=== PATIENT | female | born 1940 | race Caucasian/White ===

== ENCOUNTER 2021-01-27 11:54 | Inpatient (IN) | payer BC ==
[~2021-01-27] VITALS: Ht 162.6 cm; Wt 68.1 kg
[2021-01-27] MEDS ORDERED: Z GUARD REMEDY PASTE 57 GM TUBE TOP PRN (21:30)
[2021-01-27 22:41] VITALS: BP 120/57
[2021-01-27] MEDS ORDERED: METO-356 PO (22:43)
[2021-01-27] MEDS ORDERED: CLOP75TA33 PO (22:43)
[2021-01-27] MEDS ORDERED: ASPI81TA31 PO (22:43)
[2021-01-27] MEDS ORDERED: SITA100T PO (22:43)
[2021-01-27] MEDS ORDERED: BENA1TAB18 PO (22:43)
[2021-01-27] MEDS ORDERED: ATOR20TA PO (22:43)
[2021-01-27] MEDS ORDERED: MULT-594 PO (22:43)
[2021-01-27] MEDS ORDERED: CYAN-51 PO (22:43)
[2021-01-27] MEDS ORDERED: ASCO-376 PO (22:43)
[2021-01-27] MEDS ORDERED: METF-494 PO (22:43)
[2021-01-27] MEDS ORDERED: LEVO88TA5 PO (22:43)
--- NOTE | 2021-01-28 03:16 | NUR ---
Pt direct admit from [facility]. Arrived in stable condition. Denies chest pain. On 2L sating at 97%. Pt alert and oriented, able to make needs known. Medications added and Dr. Tyson notified to reconcile meds. Dr. Tyson stated that it will be done in the morning. Pt not in any distress at this time. Denies pain or discomfort. No other issues or concerns at this time.
[2021-01-28 04:00] VITALS: BP 176/51
[2021-01-28] MEDS: METOPROLOL SUCCINATE XL 25 MG TAB.SR.24H PO SCH (05:10)
--- NOTE | 2021-01-28 05:10 | NUR ---
Pt had BP of 176/57, meds still not reconciled. Contacted Ana Paula Cummings NP and added Metoprolol 25mg for pt.
--- NOTE | 2021-01-28 05:48 | NUR ---
Medications reconciled. 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 Pt denies SOB or chest pain. On 1L satting at 96%. Able to make needs known. No other issues or concerns at this time, will endorse to day shift.
[2021-01-28] MEDS ORDERED: LEVOTHYROXINE SODIUM 88 MCG TABLET PO SCH (07:30)
[2021-01-28] MEDS: LINAGLIPTIN 5 MG TABLET PO SCH (08:40)
[2021-01-28] MEDS: CYANOCOBALAMIN 1,000 MCG TABLET PO SCH (08:40)
[2021-01-28] MEDS: HYDROCHLOROTHIAZIDE 12.5 MG CAPSULE PO SCH (08:41)
[2021-01-28] MEDS: BENAZEPRIL HCL 20 MG TABLET PO SCH (08:41)
[2021-01-28] MEDS: MULTIVITAMINS,THERAPEUTIC TABLET PO SCH (08:41)
[2021-01-28] MEDS: ASCORBIC ACID 500 MG TABLET PO SCH (08:41)
[2021-01-28 08:46] VITALS: BP 181/65
[2021-01-28] MEDS ORDERED: METF-442 PO (08:47)
[2021-01-28] MEDS ORDERED: METFORMIN XR 500 MG TAB.SR.24H PO SCH ×2 (09:00)
[2021-01-28] MEDS ORDERED: ASPIRIN 81 MG TAB.CHEW PO SCH (09:00)
[2021-01-28] MEDS ORDERED: Medication Not On Formulary EA (Sitagliptin Phosphate (Januvia) 100 MG) PO SCH (09:00)
[2021-01-28] MEDS ORDERED: CLOPIDOGREL 75 MG TABLET PO SCH (09:00)
[2021-01-28] MEDS: METFORMIN HCL 500 MG TABLET PO SCH ×2 (09:05→17:29)
--- NOTE | 2021-01-28 09:51 | NUR ---
[facility] PH9 Post Stroke Depression Screening: harvest worker met with patient and conducted a PHQ-9 (Post Stroke Depression Screening) in which the patient score of a level of 1 for depression. Patient does not require a psychiatric consult at this time.
--- NOTE | 2021-01-28 09:52 | NUR ---
Social Work Stroke Resources: crisis worker met with patient and provided stroke referrals such as: Stroke Family Warmline at (1-048-8-STROKE) and additional information on caring for a stroke survivor ( ). crisis worker also educated patient on the signs of Stroke and to immediately call 911. crisis worker provided education on the signs of stroke and provided educational packet with information: Dietary food, what stroke is, risks, emotional support, finding support, medical management, and effects of stroke.
[2021-01-28 10:00] VITALS: BP 152/69
[2021-01-28] MEDS ORDERED: DEXTROSE 50% 50 ML DISP.SYRIN IV PRN (12:45)
[2021-01-28 15:25] VITALS: BP 141/49
[2021-01-28] MEDS: BLOOD SUGAR DIAGNOSTIC 1 EACH STRIP VI SCH ×2 (16:21→21:03)
--- NOTE | 2021-01-28 19:00 | NUR ---
Received on bed awake, responsive with call light within reach
--- NOTE | 2021-01-28 19:32 | NUR ---
Patient is alert, oriented x4, no sob, resp even nonlabored,skin warm and dry to touch, patient denied any pain, or headache, able to move her extremities without any limitations, rom active to both upper and lower extremities. no episode of any seizures noted during shift, paitent is on seizure precautions.no acute distress noted.
[2021-01-28 20:07] VITALS: BP 134/46
--- NOTE | 2021-01-28 21:00 | NUR ---
accucheck 128mg/dl. no coverage.tolerated medications
[2021-01-28] MEDS: ATORVASTATIN 20 MG TABLET PO SCH ×2 (21:02→21:09)
--- NOTE | 2021-01-29 02:46 | NUR ---
noted to be awake, was asleep when rounds done prior, with complaints of inability to sleep and sleeps at short intervals. will inform Dr Ruiz in am. warm milk given. cleaned and kept dry. bedpan served.
--- NOTE | 2021-01-29 06:10 | NUR ---
with complaints of no bm since admission, will inform physician about it.
[2021-01-29 06:15] VITALS: BP 180/74
[2021-01-29] MEDS: METOPROLOL SUCCINATE XL 25 MG TAB.SR.24H PO SCH (06:43)
[2021-01-29] MEDS: LEVOTHYROXINE SODIUM 88 MCG TABLET PO SCH (06:43)
[2021-01-29] MEDS: BENAZEPRIL HCL 20 MG TABLET PO SCH (06:44)
[2021-01-29] MEDS: BLOOD SUGAR DIAGNOSTIC 1 EACH STRIP VI SCH ×4 (06:46→20:56)
--- NOTE | 2021-01-29 06:47 | NUR ---
Dr Cummings informed about the elevated blood pressure and give the blood pressure medication early. lotensin and Torol xl dose given early /with orders for the constipation
--- NOTE | 2021-01-29 07:10 | NUR ---
received patient in bed sleeping, patient in stable condition, no signs of any SOB, pain or discomfort noted. call light within reach. will continue to monitor.
[2021-01-29 08:00] VITALS: BP 107/47
[2021-01-29] MEDS ORDERED: MAGNESIUM HYDROXIDE 30 ML LIQUID UDC PO PRN (08:00)
[2021-01-29] MEDS: MULTIVITAMINS,THERAPEUTIC TABLET PO SCH (08:33)
[2021-01-29] MEDS: LINAGLIPTIN 5 MG TABLET PO SCH (08:33)
[2021-01-29] MEDS: INSULIN REGULAR, HUMAN 300 UNIT/3 ML VIAL SQ PRN (08:33)
[2021-01-29] MEDS: HYDROCHLOROTHIAZIDE 12.5 MG CAPSULE PO SCH (08:34)
[2021-01-29] MEDS: METFORMIN HCL 500 MG TABLET PO SCH ×2 (08:34→17:07)
[2021-01-29] MEDS: ASCORBIC ACID 500 MG TABLET PO SCH (08:35)
[2021-01-29] MEDS: CYANOCOBALAMIN 1,000 MCG TABLET PO SCH (08:35)
[2021-01-29 16:46] VITALS: BP 129/51
--- NOTE | 2021-01-29 18:19 | NUR ---
patient in bed awake watching tv, patient stable. no complains of any SOB, pain or discomfort noted at this time. call light and belongings within reach. will report to oncoming nurse.
--- NOTE | 2021-01-29 19:00 | NUR ---
REceived on bed on high back rest with no untoward complaints, bedpan serve for voiding . with call light within reach
[2021-01-29 20:50] VITALS: BP 126/44
[2021-01-29] MEDS: ATORVASTATIN 20 MG TABLET PO SCH (21:03)
--- NOTE | 2021-01-29 23:44 | NUR ---
cleaned and voided freely. patient with complaints of pain to the neck. and requesting for tylenol . and anxious. Dr Tyson paged and with orders and carried out,
[2021-01-29] MEDS: ACETAMINOPHEN 325 MG TABLET PO PRN (23:53)
[2021-01-30] MEDS: TEMAZEPAM 7.5 MG CAPSULE PO PRN ×2 (00:13→22:11)
[2021-01-30 04:20] VITALS: BP 137/60
[2021-01-30] MEDS: LEVOTHYROXINE SODIUM 88 MCG TABLET PO SCH (06:28)
[2021-01-30] MEDS: BLOOD SUGAR DIAGNOSTIC 1 EACH STRIP VI SCH ×4 (06:33→21:00)
--- NOTE | 2021-01-30 07:30 | NUR ---
Awake and responsive, oriented x4. Denies pain. In no acute distress noted on 2lpm via nc. Breathing is non labored. Requests for bed goff. Needs attended. Kept comfortable. Call light in reach. Will continue to monitor.
[2021-01-30 08:00] VITALS: BP 139/59
[2021-01-30] MEDS: METFORMIN HCL 500 MG TABLET PO SCH ×2 (09:13→18:10)
[2021-01-30] MEDS: HYDROCHLOROTHIAZIDE 12.5 MG CAPSULE PO SCH (09:13)
[2021-01-30] MEDS: MULTIVITAMINS,THERAPEUTIC TABLET PO SCH (09:14)
[2021-01-30] MEDS: CYANOCOBALAMIN 1,000 MCG TABLET PO SCH (09:14)
[2021-01-30] MEDS: METOPROLOL SUCCINATE XL 25 MG TAB.SR.24H PO SCH (09:14)
[2021-01-30] MEDS: ASCORBIC ACID 500 MG TABLET PO SCH (09:14)
[2021-01-30] MEDS: LINAGLIPTIN 5 MG TABLET PO SCH (09:14)
[2021-01-30] MEDS: BENAZEPRIL HCL 20 MG TABLET PO SCH (09:14)
[2021-01-30] MEDS: INSULIN REGULAR, HUMAN 300 UNIT/3 ML VIAL SQ PRN (11:45)
[2021-01-30 12:00] VITALS: BP 120/41
--- NOTE | 2021-01-30 12:00 | NUR ---
Seen by LIV Kate in room.
[2021-01-30 16:04] VITALS: BP 124/47
--- NOTE | 2021-01-30 18:55 | NUR ---
Patient is resting but easy to arouse. In no acute distress. Comfortable on 2lpm drew nc no sob noted. Due meds given and tolerated. Safety and fall precautions maintained. Needs attended.
--- NOTE | 2021-01-30 19:00 | NUR ---
RECEIVED REPORT FROM AM NURSE SHAR PT IS ALERT AND ORIENTED X4 PT LYING ON BED ASLEEP NO SIGNS OF RESPIRTORY DISTRESS NOTED WILL CONTINUE TO MONITOR.
[2021-01-30 20:00] VITALS: BP 144/57
--- NOTE | 2021-01-30 22:00 | NUR ---
PT WAS GIVEN MEDICATION ORDERED NO SIGNS OF ADVERSE REACTION NOTED. PT HS BLOOD SUGAR IS 119 NO SIGNS OF DIABETIC REACTION NOTED. ASSISTED PT ON BEDPAN OUTPUT 100ML OUTPUT AND USED BEDPAN OUT PUT WAS 100. WILL CONTINUE TO MONITOR NO SIGNS OF DISTRESS NOTED.
[2021-01-30] MEDS: ATORVASTATIN 20 MG TABLET PO SCH (22:10)
[2021-01-31 04:47] VITALS: BP 117/53
[2021-01-31] MEDS: LEVOTHYROXINE SODIUM 88 MCG TABLET PO SCH (07:08)
[2021-01-31] MEDS: BLOOD SUGAR DIAGNOSTIC 1 EACH STRIP VI SCH ×4 (07:10→21:42)
--- NOTE | 2021-01-31 07:37 | NUR ---
Pt was given am medication no signs adverse reaction noted. Endorse to am nurse Ted blood sugar 137 informed nurse to give pt 2 units of regular insulin.
[2021-01-31 08:00] VITALS: BP 113/49
[2021-01-31] MEDS: INSULIN REGULAR, HUMAN 300 UNIT/3 ML VIAL SQ PRN ×2 (08:08→21:45)
[2021-01-31] MEDS: HYDROCHLOROTHIAZIDE 12.5 MG CAPSULE PO SCH (08:37)
[2021-01-31] MEDS: METFORMIN HCL 500 MG TABLET PO SCH ×2 (08:37→17:15)
[2021-01-31] MEDS: LINAGLIPTIN 5 MG TABLET PO SCH (08:38)
[2021-01-31] MEDS: METOPROLOL SUCCINATE XL 25 MG TAB.SR.24H PO SCH (08:38)
[2021-01-31] MEDS: ASCORBIC ACID 500 MG TABLET PO SCH (08:39)
[2021-01-31] MEDS: MULTIVITAMINS,THERAPEUTIC TABLET PO SCH (08:39)
[2021-01-31] MEDS: BENAZEPRIL HCL 20 MG TABLET PO SCH (08:39)
[2021-01-31] MEDS: CYANOCOBALAMIN 1,000 MCG TABLET PO SCH (08:39)
[2021-01-31 17:01] VITALS: BP 142/57
[2021-01-31 20:15] VITALS: BP 145/55
[2021-01-31] MEDS: ATORVASTATIN 20 MG TABLET PO SCH (21:41)
[2021-02-01] MEDS: ACETAMINOPHEN 325 MG TABLET PO PRN (01:37)
[2021-02-01 04:09] VITALS: BP 143/52
[2021-02-01] MEDS: LEVOTHYROXINE SODIUM 88 MCG TABLET PO SCH (06:30)
[2021-02-01 08:00] VITALS: BP 127/53
[2021-02-01] MEDS: BLOOD SUGAR DIAGNOSTIC 1 EACH STRIP VI SCH ×4 (08:10→20:37)
[2021-02-01] MEDS: METFORMIN HCL 500 MG TABLET PO SCH ×2 (08:11→17:03)
[2021-02-01] MEDS: ASCORBIC ACID 500 MG TABLET PO SCH (08:11)
[2021-02-01] MEDS: MULTIVITAMINS,THERAPEUTIC TABLET PO SCH (08:11)
[2021-02-01] MEDS: LINAGLIPTIN 5 MG TABLET PO SCH (08:11)
[2021-02-01] MEDS: HYDROCHLOROTHIAZIDE 12.5 MG CAPSULE PO SCH (08:11)
[2021-02-01] MEDS: CYANOCOBALAMIN 1,000 MCG TABLET PO SCH (08:12)
[2021-02-01] MEDS: BENAZEPRIL HCL 20 MG TABLET PO SCH (08:12)
[2021-02-01] MEDS: METOPROLOL SUCCINATE XL 25 MG TAB.SR.24H PO SCH (08:13)
[2021-02-01] MEDS ORDERED: DIPHENOXYLATE HCL/ATROP SULF TABLET PO PRN (13:45)
[2021-02-01 15:15] VITALS: BP 128/50
[2021-02-01 20:11] VITALS: BP 129/53
[2021-02-01] MEDS: ATORVASTATIN 20 MG TABLET PO SCH (20:34)
[2021-02-01] MEDS: INSULIN REGULAR, HUMAN 300 UNIT/3 ML VIAL SQ PRN (20:41)
[2021-02-01] MEDS: TEMAZEPAM 7.5 MG CAPSULE PO PRN (23:49)
--- NOTE | 2021-02-01 23:53 | NUR ---
Received pt axox4, no acute distress noted. VSS pt is on 1.5 L of O2 saturating @95-97%, not SOB noted. Denies any pain or discomfort at the moment. Accucheck 135, covered per sliding scale. All due medications administered and tolerated well. Pt requested Restoril, administered. All needs attended to promptly. Pt is continent with bedpan. No episodes of diarrhea noted. Safety measures maintained. Call light and all personal items within reach.
[2021-02-02 04:04] VITALS: BP 132/54
[2021-02-02] MEDS: LEVOTHYROXINE SODIUM 88 MCG TABLET PO SCH (06:34)
[2021-02-02] MEDS: BLOOD SUGAR DIAGNOSTIC 1 EACH STRIP VI SCH ×4 (06:37→20:45)
[2021-02-02 08:00] VITALS: BP 126/53
[2021-02-02] MEDS: BENAZEPRIL HCL 20 MG TABLET PO SCH (09:15)
[2021-02-02] MEDS: MULTIVITAMINS,THERAPEUTIC TABLET PO SCH (09:15)
[2021-02-02] MEDS: LINAGLIPTIN 5 MG TABLET PO SCH (09:15)
[2021-02-02] MEDS: METFORMIN HCL 500 MG TABLET PO SCH ×2 (09:15→17:11)
[2021-02-02] MEDS: HYDROCHLOROTHIAZIDE 12.5 MG CAPSULE PO SCH (09:15)
[2021-02-02] MEDS: ASCORBIC ACID 500 MG TABLET PO SCH (09:15)
[2021-02-02] MEDS: METOPROLOL SUCCINATE XL 25 MG TAB.SR.24H PO SCH (09:16)
[2021-02-02] MEDS: CYANOCOBALAMIN 1,000 MCG TABLET PO SCH (09:16)
--- NOTE | 2021-02-02 14:41 | NUR ---
INTERDISCIPLINARY TEAM CONFERENCE
[2021-02-02 16:56] VITALS: BP 125/44
[2021-02-02 20:00] VITALS: BP 118/43
[2021-02-02] MEDS: ATORVASTATIN 20 MG TABLET PO SCH (20:42)
[2021-02-02] MEDS: TEMAZEPAM 7.5 MG CAPSULE PO PRN (22:11)
[2021-02-03] MEDS: ALPRAZOLAM 0.5 MG TABLET PO PRN (04:31)
[2021-02-03 04:53] VITALS: BP 127/49
[2021-02-03] MEDS: LEVOTHYROXINE SODIUM 88 MCG TABLET PO SCH (05:49)
[2021-02-03] MEDS: BLOOD SUGAR DIAGNOSTIC 1 EACH STRIP VI SCH ×4 (05:52→20:08)
--- NOTE | 2021-02-03 06:15 | NUR ---
Shift End Report: Slept well with Restoril. No complaint of pain presented. Bp at 0400 was 180/66, Denies any s/s of hypertension. quite anxious, Xanax given as ordered and needed very effective, BP down to 122/47 at this time. Denies any discomforts at this time. All needs attended and met. No significant event reported. Continue current rehab plan of care.
[2021-02-03 08:00] VITALS: BP 127/45
[2021-02-03] MEDS: HYDROCHLOROTHIAZIDE 12.5 MG CAPSULE PO SCH (08:09)
[2021-02-03] MEDS: CYANOCOBALAMIN 1,000 MCG TABLET PO SCH (08:09)
[2021-02-03] MEDS: LINAGLIPTIN 5 MG TABLET PO SCH (08:09)
[2021-02-03] MEDS: BENAZEPRIL HCL 20 MG TABLET PO SCH (08:10)
[2021-02-03] MEDS: ASCORBIC ACID 500 MG TABLET PO SCH (08:10)
[2021-02-03] MEDS: MULTIVITAMINS,THERAPEUTIC TABLET PO SCH (08:23)
[2021-02-03] MEDS: METFORMIN HCL 500 MG TABLET PO SCH ×2 (08:24→18:25)
[2021-02-03] MEDS: METOPROLOL SUCCINATE XL 25 MG TAB.SR.24H PO SCH (08:28)
[2021-02-03] MEDS: INSULIN REGULAR, HUMAN 300 UNIT/3 ML VIAL SQ PRN (11:39)
[2021-02-03 15:11] VITALS: BP 99/47
--- NOTE | 2021-02-03 18:46 | NUR ---
Received resident awake on bed with no respiratory distress noted. Alert and oriented x4, able to make needs known. Toileting assistance rendered with the use of walker. Due medications given as ordered and blood sugar checks done. Will continue to monitor.
[2021-02-03 20:00] VITALS: BP 146/58
[2021-02-03] MEDS: ATORVASTATIN 20 MG TABLET PO SCH (20:06)
[2021-02-03] MEDS: TEMAZEPAM 7.5 MG CAPSULE PO PRN (22:26)
[2021-02-04 04:00] VITALS: BP 156/63
[2021-02-04] MEDS: LEVOTHYROXINE SODIUM 88 MCG TABLET PO SCH (06:11)
[2021-02-04] MEDS: BLOOD SUGAR DIAGNOSTIC 1 EACH STRIP VI SCH ×4 (06:18→20:47)
[2021-02-04 08:22] VITALS: BP 157/57
[2021-02-04] MEDS: BENAZEPRIL HCL 20 MG TABLET PO SCH (08:40)
[2021-02-04] MEDS: METOPROLOL SUCCINATE XL 25 MG TAB.SR.24H PO SCH (08:40)
[2021-02-04] MEDS: ASCORBIC ACID 500 MG TABLET PO SCH (08:40)
[2021-02-04] MEDS: MULTIVITAMINS,THERAPEUTIC TABLET PO SCH (08:40)
[2021-02-04] MEDS: CYANOCOBALAMIN 1,000 MCG TABLET PO SCH (08:40)
[2021-02-04] MEDS: METFORMIN HCL 500 MG TABLET PO SCH ×2 (08:41→18:30)
[2021-02-04] MEDS: LINAGLIPTIN 5 MG TABLET PO SCH (08:42)
[2021-02-04] MEDS: GLUCERNA SHAKE VANILLA 237 ML CAN PO SCH (08:43)
[2021-02-04] MEDS: HYDROCHLOROTHIAZIDE 12.5 MG CAPSULE PO SCH (08:43)
[2021-02-04] MEDS: INSULIN REGULAR, HUMAN 300 UNIT/3 ML VIAL SQ PRN (12:09)
[2021-02-04 16:25] VITALS: BP 114/54
--- NOTE | 2021-02-04 17:46 | NUR ---
Received resident awake on bed with no respiratory distress noted. Alert and oriented x4, able to make needs known. Toileting assistance rendered with the use of walker. All needs attended. Will continue to monitor.
[2021-02-04 20:00] VITALS: BP 124/56
--- NOTE | 2021-02-04 20:00 | NUR ---
PATIENT AWAKE IN BED. A/O X4. DENIES ANY PAIN OR DISCOMFORT. NO RESP. DISTRESS NOTED. VS WNL. CALL LIGHT IN REACH. ALL NEEDS ATTENDED. WILL CONTINUE TO MONITOR AND ASSESS.
[2021-02-04] MEDS: ATORVASTATIN 20 MG TABLET PO SCH (20:06)
[2021-02-04] MEDS: TEMAZEPAM 7.5 MG CAPSULE PO PRN (21:47)
[2021-02-05] MEDS: ALPRAZOLAM 0.5 MG TABLET PO PRN (03:53)
[2021-02-05 04:00] VITALS: BP 158/68
[2021-02-05] MEDS: LEVOTHYROXINE SODIUM 88 MCG TABLET PO SCH (06:14)
[2021-02-05] MEDS: BLOOD SUGAR DIAGNOSTIC 1 EACH STRIP VI SCH ×4 (06:34→20:44)
--- NOTE | 2021-02-05 06:40 | NUR ---
PATIENT AWAKE IN BED. SLEPT AT INTERVALS. DENIES ANY PAIN AND DISCOMFORT. NO RESP. DISTRESS NOTED. CALL LIGHT IN REACH. ALL NEEDS ATTENDED. WILL CONTINUE TO MONITOR AND ASSESS.
[2021-02-05 08:04] VITALS: BP 140/62
[2021-02-05] MEDS: HYDROCHLOROTHIAZIDE 12.5 MG CAPSULE PO SCH (08:14)
[2021-02-05] MEDS: METFORMIN HCL 500 MG TABLET PO SCH ×2 (08:14→18:03)
[2021-02-05] MEDS: METOPROLOL SUCCINATE XL 25 MG TAB.SR.24H PO SCH (08:14)
[2021-02-05] MEDS: MULTIVITAMINS,THERAPEUTIC TABLET PO SCH (08:14)
[2021-02-05] MEDS: CYANOCOBALAMIN 1,000 MCG TABLET PO SCH (08:14)
[2021-02-05] MEDS: ASCORBIC ACID 500 MG TABLET PO SCH (08:14)
[2021-02-05] MEDS: BENAZEPRIL HCL 20 MG TABLET PO SCH (08:14)
[2021-02-05] MEDS: LINAGLIPTIN 5 MG TABLET PO SCH (08:14)
[2021-02-05] MEDS: GLUCERNA SHAKE VANILLA 237 ML CAN PO SCH (08:20)
[2021-02-05 15:14] VITALS: BP 115/40
[2021-02-05 20:00] VITALS: BP 135/50
[2021-02-05] MEDS: ATORVASTATIN 20 MG TABLET PO SCH (20:21)
[2021-02-05] MEDS: TEMAZEPAM 7.5 MG CAPSULE PO PRN (21:24)
[2021-02-06 05:53] VITALS: BP 159/63
[2021-02-06] MEDS: LEVOTHYROXINE SODIUM 88 MCG TABLET PO SCH (06:13)
[2021-02-06 07:34] LABS: HEMATOCRIT 36.8 % (31.2-41.9); MEAN CORPUSCULAR HEMOGLOBIN 31.7 uug (24.7-32.8); MEAN CORPUSCULAR VOLUME 93.9 fL (75.5-95.3); PLATELET COUNT (AUTO) 327 K/uL (179-408)
[2021-02-06] MEDS: BLOOD SUGAR DIAGNOSTIC 1 EACH STRIP VI SCH ×4 (07:59→21:04)
[2021-02-06 08:00] VITALS: BP 149/56
[2021-02-06] MEDS: INSULIN REGULAR, HUMAN 300 UNIT/3 ML VIAL SQ PRN (08:02)
[2021-02-06] MEDS: HYDROCHLOROTHIAZIDE 12.5 MG CAPSULE PO SCH (08:02)
[2021-02-06] MEDS: BENAZEPRIL HCL 20 MG TABLET PO SCH (08:03)
[2021-02-06] MEDS: ASCORBIC ACID 500 MG TABLET PO SCH (08:03)
[2021-02-06] MEDS: MULTIVITAMINS,THERAPEUTIC TABLET PO SCH (08:03)
[2021-02-06] MEDS: LINAGLIPTIN 5 MG TABLET PO SCH (08:03)
[2021-02-06] MEDS: METOPROLOL SUCCINATE XL 25 MG TAB.SR.24H PO SCH (08:03)
[2021-02-06 08:04] LABS: BILIRUBIN,TOTAL 0.3 mg/dL (0.2-1.0); CREATININE 1.1 mg/dL (0.6-1.3); PHOSPHOROUS 4.1 mg/dL (2.5-4.9); POTASSIUM 5.4 mmol/L (3.5-5.1); TOTAL PROTEIN, SERUM 7.2 g/dL (6.4-8.2)
[2021-02-06] MEDS: CYANOCOBALAMIN 1,000 MCG TABLET PO SCH (08:04)
[2021-02-06] MEDS: GLUCERNA SHAKE VANILLA 237 ML CAN PO SCH (08:12)
[2021-02-06] MEDS: AMLODIPINE 10 MG TABLET PO SCH (09:15)
[2021-02-06] MEDS: METFORMIN HCL 500 MG TABLET PO SCH ×2 (09:40→17:55)
[2021-02-06 16:07] VITALS: BP 116/45
[2021-02-06] MEDS: FUROSEMIDE 20 MG TABLET PO SCH (17:55)
[2021-02-06 20:00] VITALS: BP 136/51
[2021-02-06] MEDS: ATORVASTATIN 20 MG TABLET PO SCH (20:35)
[2021-02-06] MEDS: TEMAZEPAM 7.5 MG CAPSULE PO PRN (22:09)
[2021-02-07 04:00] VITALS: BP 116/46
[2021-02-07] MEDS: LEVOTHYROXINE SODIUM 88 MCG TABLET PO SCH (06:10)
[2021-02-07 07:00] LABS: CREATININE 1.3 mg/dL (0.6-1.3); MAGNESIUM 1.7 mg/dL (1.8-2.4); PHOSPHOROUS 4.2 mg/dL (2.5-4.9); URIC ACID 7.6 mg/dL (2.6-6.0)
[2021-02-07 07:12] LABS: THYROID STIMULATING HORMONE 5.476 mIU/mL (0.358-3.740)
[2021-02-07] MEDS: BLOOD SUGAR DIAGNOSTIC 1 EACH STRIP VI SCH ×4 (07:56→20:14)
[2021-02-07] MEDS: METFORMIN HCL 500 MG TABLET PO SCH ×2 (07:59→17:31)
[2021-02-07 08:00] VITALS: BP 130/55
[2021-02-07] MEDS: MULTIVITAMINS,THERAPEUTIC TABLET PO SCH (08:05)
[2021-02-07] MEDS: ASCORBIC ACID 500 MG TABLET PO SCH (08:05)
[2021-02-07] MEDS: LINAGLIPTIN 5 MG TABLET PO SCH (08:05)
[2021-02-07] MEDS: FUROSEMIDE 20 MG TABLET PO SCH ×3 (08:05→17:31)
[2021-02-07] MEDS: CYANOCOBALAMIN 1,000 MCG TABLET PO SCH (08:05)
[2021-02-07] MEDS: BENAZEPRIL HCL 20 MG TABLET PO SCH (08:11)
[2021-02-07] MEDS: METOPROLOL SUCCINATE XL 25 MG TAB.SR.24H PO SCH (08:11)
[2021-02-07] MEDS: GLUCERNA SHAKE VANILLA 237 ML CAN PO SCH (08:12)
[2021-02-07] MEDS ORDERED: MAGNESIUM OXIDE 400 MG TABLET PO ONE (09:30)
[2021-02-07] MEDS: AMLODIPINE 10 MG TABLET PO SCH (09:59)
--- NOTE | 2021-02-07 10:30 | NUR ---
Dominic Irizarry DNP in the unit, informed COMPACTING MACHINE OPERATOR/TENDER regarding holding amlodipine due to decreased BP with no symptoms. Per COMPACTING MACHINE OPERATOR/TENDER continue to monitor and will adjust medications.
[2021-02-07 13:58] LABS: *CHLORIDE RNDM,URINE 77 mmol/L (100-250); *POTASSIUM RNDM,URINE 45 mmol/L (25-125)
[2021-02-07 16:00] VITALS: BP 128/58
--- NOTE | 2021-02-07 16:30 | NUR ---
Patient seen by Dr. Palmer, update given to MD with no new order at this time. Per MD he will review her BP medications.
--- NOTE | 2021-02-07 19:30 | NUR ---
Per Dr. Palmer change BMP order date to 02/08/21.
[2021-02-07 20:00] VITALS: BP_SYST 120; BP_SYST 93; BP_DIAS 36; BP_DIAS 65
[2021-02-07] MEDS: ATORVASTATIN 20 MG TABLET PO SCH (20:14)
[2021-02-07] MEDS: TEMAZEPAM 7.5 MG CAPSULE PO PRN (22:00)
[2021-02-08] VITALS (7 sets, daily range): BP systolic 83–148; BP diastolic 48–58
[2021-02-08] MEDS: LEVOTHYROXINE SODIUM 88 MCG TABLET PO SCH (06:03)
[2021-02-08 07:18] LABS: CREATININE 1.3 mg/dL (0.6-1.3); POTASSIUM 4.9 mmol/L (3.5-5.1)
[2021-02-08] MEDS: BLOOD SUGAR DIAGNOSTIC 1 EACH STRIP VI SCH ×2 (07:30→12:17)
[2021-02-08] MEDS: METFORMIN HCL 500 MG TABLET PO SCH ×2 (07:46→17:17)
[2021-02-08] MEDS: ASCORBIC ACID 500 MG TABLET PO SCH (08:03)
[2021-02-08] MEDS: BENAZEPRIL HCL 20 MG TABLET PO SCH (08:03)
[2021-02-08] MEDS: METOPROLOL SUCCINATE XL 25 MG TAB.SR.24H PO SCH (08:03)
[2021-02-08] MEDS: MULTIVITAMINS,THERAPEUTIC TABLET PO SCH (08:03)
[2021-02-08] MEDS: LINAGLIPTIN 5 MG TABLET PO SCH (08:03)
[2021-02-08] MEDS: AMLODIPINE 5 MG TABLET PO SCH (08:04)
[2021-02-08] MEDS: CYANOCOBALAMIN 1,000 MCG TABLET PO SCH (08:04)
[2021-02-08] MEDS: ASPIRIN EC 81 MG TABLET.DR PO SCH (08:39)
[2021-02-08] MEDS ORDERED: AMLODIPINE 10 MG TABLET PO SCH (09:00)
[2021-02-08] MEDS ORDERED: hydrALAZINE HCL 25 MG TABLET PO PRN (13:30)
--- NOTE | 2021-02-08 13:32 | NUR ---
after morning meds patient stated she does not feel right, vitals checked, noted with hypotension, fluids given, patient is alert, oriented x4, however stated feels tired, continued to check and monitored, blood pressure came up, patient was able to participate with PT exercises, dr riley made aware to adjust BP meds. no distress noted at this time.
[2021-02-08] MEDS: ATORVASTATIN 20 MG TABLET PO SCH (20:30)
--- NOTE | 2021-02-08 20:58 | NUR ---
Received patient in bed awake alert and oriented x4. Vital signs BP 115/50 HR 78 resp 18 Temp 98.0 pulse ox 93% RA Tolerated po meds well. Denies any pain nor any discomfort. Continent of bowel and bladder. Voiding well in the bedpan. No BM noted this shift. Will monitor patient. Fall precautions maintained. Siderails up for safety. Call [place] within reach.
[2021-02-08] MEDS: TEMAZEPAM 7.5 MG CAPSULE PO PRN (21:28)
[2021-02-09 04:35] VITALS: BP 147/61
[2021-02-09] MEDS: LEVOTHYROXINE SODIUM 88 MCG TABLET PO SCH (06:17)
--- NOTE | 2021-02-09 06:28 | NUR ---
End of shift notes: Slept well most of the shift. Had a sleeping pill last night. VSS. No acute distress noted. Voiding well in the bedpan. No complaints presented during the shift.
[2021-02-09 08:00] VITALS: BP 119/71
[2021-02-09] MEDS: ASPIRIN EC 81 MG TABLET.DR PO SCH (08:01)
[2021-02-09] MEDS: METFORMIN HCL 500 MG TABLET PO SCH ×2 (08:01→17:41)
[2021-02-09] MEDS: LINAGLIPTIN 5 MG TABLET PO SCH (08:02)
[2021-02-09] MEDS: BENAZEPRIL HCL 10 MG TABLET PO SCH (08:02)
[2021-02-09] MEDS: CYANOCOBALAMIN 1,000 MCG TABLET PO SCH (08:02)
[2021-02-09] MEDS: ASCORBIC ACID 500 MG TABLET PO SCH (08:02)
[2021-02-09] MEDS: MULTIVITAMINS,THERAPEUTIC TABLET PO SCH (08:02)
[2021-02-09] MEDS: AMLODIPINE 5 MG TABLET PO SCH (08:05)
[2021-02-09] MEDS: METOPROLOL SUCCINATE XL 25 MG TAB.SR.24H PO SCH (08:05)
[2021-02-09 15:49] VITALS: BP 110/48
[2021-02-09 18:28] LABS: *BILIRUBIN,URIN NEGATIVE (NEGATIVE); *BLOOD, URINE 1+ (NEGATIVE); *CLARITY,URINE CLOUDY (CLEAR); *COLOR,URINE YELLOW (YELLOW); *KETONES,URINE NEGATIVE (NEGATIVE); *UROBILINOGEN,URINE 0.2 E.U./dl (NORMAL); LEUKOCYTE ESTERASE ,URINE 3+ (NEGATIVE); NITRITE, URINE POSITIVE (NEGATIVE); UGLUCOSE NEGATIVE (NEGATIVE)
[2021-02-09 18:56] LABS: WBC,URINE TNTC /HPF (0-3)
[2021-02-09 18:57] LABS: BACTERIA,URINE MANY /HPF (NONE SEEN)
[2021-02-09 20:00] VITALS: BP 155/72
[2021-02-09] MEDS: ATORVASTATIN 20 MG TABLET PO SCH (20:26)
[2021-02-09] MEDS: CEFTRIAXONE 1 G in IV DEXTROSE 5% 50 ML IV SCH (21:07)
[2021-02-09] MEDS: TEMAZEPAM 7.5 MG CAPSULE PO PRN (21:55)
[2021-02-10 04:41] VITALS: BP 172/75
[2021-02-10] MEDS: LEVOTHYROXINE SODIUM 88 MCG TABLET PO SCH (06:05)
[2021-02-10] MEDS: BENAZEPRIL HCL 10 MG TABLET PO SCH (08:01)
[2021-02-10] MEDS: ASPIRIN EC 81 MG TABLET.DR PO SCH (08:01)
[2021-02-10] MEDS: LINAGLIPTIN 5 MG TABLET PO SCH (08:01)
[2021-02-10] MEDS: METOPROLOL SUCCINATE XL 25 MG TAB.SR.24H PO SCH (08:02)
[2021-02-10] MEDS: METFORMIN HCL 500 MG TABLET PO SCH ×2 (08:02→17:08)
[2021-02-10] MEDS: ASCORBIC ACID 500 MG TABLET PO SCH (08:02)
[2021-02-10] MEDS: CYANOCOBALAMIN 1,000 MCG TABLET PO SCH (08:02)
[2021-02-10] MEDS: MULTIVITAMINS,THERAPEUTIC TABLET PO SCH (08:02)
[2021-02-10] MEDS: AMLODIPINE 5 MG TABLET PO SCH (08:03)
[2021-02-10 08:14] VITALS: BP 141/65
[2021-02-10 15:27] VITALS: BP 116/41
[2021-02-10] MEDS: ALPRAZOLAM 0.5 MG TABLET PO PRN ×2 (15:29→16:00)
--- NOTE | 2021-02-10 16:51 | NUR ---
patient was very anxious, offered xanax, patient refused, medication wasted with wittness, later silvia requested she wants to take xanax, administered as ordered
--- NOTE | 2021-02-10 19:18 | NUR ---
Received pt lying in bed watching TV, a/ox4 able to make needs known. No respiratory distress noted. No complaints of pain and discomfort made at this time. Peripheral line on L forearm remains intact, flushed with NS. All needs attended. Call light placed within reach. Will continue to monitor.
[2021-02-10 20:00] VITALS: BP 156/63
[2021-02-10] MEDS: ATORVASTATIN 20 MG TABLET PO SCH (21:22)
[2021-02-10] MEDS: CEFTRIAXONE 1 G in IV DEXTROSE 5% 50 ML IV SCH (21:25)
[2021-02-10] MEDS: TEMAZEPAM 7.5 MG CAPSULE PO PRN (23:58)
[2021-02-11 04:00] VITALS: BP 105/55
[2021-02-11] MEDS: LEVOTHYROXINE SODIUM 88 MCG TABLET PO SCH (06:07)
--- NOTE | 2021-02-11 06:30 | NUR ---
Patient slept intermittently throughout the night. Temazepam PRN given. No respiratory distress noted. No complaints of pain and discomfort made. Toileting assistance rendered. All needs attended. Call light placed within reach. Will endorse to next shift.
[2021-02-11 08:29] VITALS: BP 104/43
[2021-02-11] MEDS: BENAZEPRIL HCL 10 MG TABLET PO SCH (09:00)
[2021-02-11] MEDS: AMLODIPINE 5 MG TABLET PO SCH (09:00)
[2021-02-11] MEDS: METOPROLOL SUCCINATE XL 25 MG TAB.SR.24H PO SCH (09:00)
[2021-02-11] MEDS: ASPIRIN EC 81 MG TABLET.DR PO SCH (09:00)
[2021-02-11] MEDS: ASCORBIC ACID 500 MG TABLET PO SCH (09:01)
[2021-02-11] MEDS: CYANOCOBALAMIN 1,000 MCG TABLET PO SCH (09:01)
[2021-02-11] MEDS: METFORMIN HCL 500 MG TABLET PO SCH ×2 (09:02→17:21)
[2021-02-11] MEDS: LINAGLIPTIN 5 MG TABLET PO SCH (09:02)
[2021-02-11] MEDS: MULTIVITAMINS,THERAPEUTIC TABLET PO SCH (09:02)
[2021-02-11 14:43] VITALS: BP 90/43
--- NOTE | 2021-02-11 18:45 | NUR ---
The patient is alert/oriented x4, able to make needs known. No respiratory distress noted. Kept patient clean, dry, and comfortable. All needs and concerns attended. All due medications given as ordered. Frequent safety checks done. Will continue to monitor for any significant changes. Endorsed to the next shift.
[2021-02-11] MEDS: CEFTRIAXONE 1 G in IV DEXTROSE 5% 50 ML IV SCH (20:10)
[2021-02-11] MEDS: ATORVASTATIN 20 MG TABLET PO SCH (20:10)
[2021-02-11 20:28] VITALS: BP 134/56
--- NOTE | 2021-02-11 21:22 | NUR ---
Resting in bed. AAOx4 All due meds given as ordered. Needs attended. Continent of bowel and bladder. Voiding well in the bedpan. No BM noted this shift. Denies any pain nor any discomfort. On IV Rocephin given as scheduled. No ill effects noted. Will monitor patient. VSS. Fall precautions maintained. Siderails up for safety.
[2021-02-11] MEDS: TEMAZEPAM 7.5 MG CAPSULE PO PRN (22:15)
[2021-02-12 04:00] VITALS: BP 145/67
[2021-02-12] MEDS: LEVOTHYROXINE SODIUM 88 MCG TABLET PO SCH (06:23)
--- NOTE | 2021-02-12 06:48 | NUR ---
AAOx4 Slept at short intervals. Needs attended. VSS. Patient frequently voiding in bedpan. No acute distress noted. Will monitor patient.
[2021-02-12 08:00] VITALS: BP 159/85
[2021-02-12] MEDS: MULTIVITAMINS,THERAPEUTIC TABLET PO SCH (08:34)
[2021-02-12] MEDS: BENAZEPRIL HCL 10 MG TABLET PO SCH (08:34)
[2021-02-12] MEDS: ASPIRIN EC 81 MG TABLET.DR PO SCH (08:34)
[2021-02-12] MEDS: METFORMIN HCL 500 MG TABLET PO SCH ×2 (08:34→17:29)
[2021-02-12] MEDS: CYANOCOBALAMIN 1,000 MCG TABLET PO SCH (08:35)
[2021-02-12] MEDS: METOPROLOL SUCCINATE XL 25 MG TAB.SR.24H PO SCH (08:35)
[2021-02-12] MEDS: LINAGLIPTIN 5 MG TABLET PO SCH (08:35)
[2021-02-12] MEDS: ASCORBIC ACID 500 MG TABLET PO SCH (08:35)
--- NOTE | 2021-02-12 10:03 | NUR ---
INTERDISCIPLINARY TEAM CONFERENCE
[2021-02-12 16:21] VITALS: BP 100/46
--- NOTE | 2021-02-12 18:54 | NUR ---
The patient is alert/oriented x4, able to make needs known. Denies discomfort. No respiratory distress noted. Kept patient clean, dry, and comfortable. Assisted with care. All needs and concerns attended. All due medications given as ordered. Frequent safety checks done. Safety precaution maintained. Will continue to monitor for any significant changes. Endorsed to the next shift.
[2021-02-12 20:07] VITALS: BP 119/53
[2021-02-12] MEDS: CEFTRIAXONE 1 G in IV DEXTROSE 5% 50 ML IV SCH (20:37)
[2021-02-12] MEDS: ATORVASTATIN 20 MG TABLET PO SCH (20:37)
[2021-02-12] MEDS: TEMAZEPAM 7.5 MG CAPSULE PO PRN (21:52)
--- NOTE | 2021-02-12 22:01 | NUR ---
AAOX4 Patient still on IV ABT for UTI. Tolerated well. No ill effects noted. All needs attended. Continent of bowel and bladder. Voiding well in bedpan. All due meds given. Denies any pain nor any discomfort. Will monitor patient.
[2021-02-13 05:18] VITALS: BP 112/55
[2021-02-13] MEDS: LEVOTHYROXINE SODIUM 88 MCG TABLET PO SCH (06:24)
--- NOTE | 2021-02-13 06:38 | NUR ---
End of shift notes: Quiet night. Sleep well throughout the shift. VSS. All needs attended. Voiding well. No complaints presented so far.
--- NOTE | 2021-02-13 07:23 | NUR ---
Received in bed awake alert and oriented. No acute distress. Conversant. Denies pain or discomfort. IV intact. No signs of infiltration. Safety and fall measures in place. Will continue to monitor.
[2021-02-13 08:00] VITALS: BP 161/67
[2021-02-13] MEDS: ASCORBIC ACID 500 MG TABLET PO SCH (08:04)
[2021-02-13] MEDS: ASPIRIN EC 81 MG TABLET.DR PO SCH (08:04)
[2021-02-13] MEDS: METFORMIN HCL 500 MG TABLET PO SCH ×2 (08:04→17:22)
[2021-02-13] MEDS: MULTIVITAMINS,THERAPEUTIC TABLET PO SCH (08:04)
[2021-02-13] MEDS: LINAGLIPTIN 5 MG TABLET PO SCH (08:04)
[2021-02-13] MEDS: CYANOCOBALAMIN 1,000 MCG TABLET PO SCH (08:05)
[2021-02-13] MEDS: BENAZEPRIL HCL 10 MG TABLET PO SCH (08:15)
[2021-02-13] MEDS: METOPROLOL SUCCINATE XL 25 MG TAB.SR.24H PO SCH (08:15)
[2021-02-13 11:54] VITALS: BP 114/50
[2021-02-13 16:37] VITALS: BP 112/51
--- NOTE | 2021-02-13 18:48 | NUR ---
Resting in bed but easily arousable. No respiratory distress. Due meds given and tolerated. No nausea or vomiting. Patient is comfortable. Safety and fall measures maintained.
[2021-02-13 20:03] VITALS: BP 114/40
[2021-02-13] MEDS: ATORVASTATIN 20 MG TABLET PO SCH (20:17)
[2021-02-13] MEDS: TEMAZEPAM 7.5 MG CAPSULE PO PRN (21:35)
[2021-02-14] MEDS: ALPRAZOLAM 0.5 MG TABLET PO PRN (01:59)
[2021-02-14 06:09] VITALS: BP 155/60
[2021-02-14] MEDS: LEVOTHYROXINE SODIUM 88 MCG TABLET PO SCH (06:09)
--- NOTE | 2021-02-14 07:00 | NUR ---
Received pt awake on bed with no respiratory distress noted. Alert and oriented x4, able to make needs known. Will continue to monitor.
[2021-02-14 07:40] VITALS: BP 160/62
[2021-02-14] MEDS: CYANOCOBALAMIN 1,000 MCG TABLET PO SCH (08:05)
[2021-02-14] MEDS: MULTIVITAMINS,THERAPEUTIC TABLET PO SCH (08:05)
[2021-02-14] MEDS: METOPROLOL SUCCINATE XL 25 MG TAB.SR.24H PO SCH (08:05)
[2021-02-14] MEDS: METFORMIN HCL 500 MG TABLET PO SCH (08:05)
[2021-02-14] MEDS: ASCORBIC ACID 500 MG TABLET PO SCH (08:05)
[2021-02-14] MEDS: LINAGLIPTIN 5 MG TABLET PO SCH (08:05)
[2021-02-14] MEDS: ASPIRIN EC 81 MG TABLET.DR PO SCH (08:05)
[2021-02-14 08:07] VITALS: BP 160/62
[2021-02-14] MEDS: BENAZEPRIL HCL 10 MG TABLET PO SCH (08:07)
--- NOTE | 2021-02-14 15:23 | NUR ---
dc orders received noted and carried out,dc instruction and education given to the pt,terry villa per md orders.pt said she will follow up with her dr on 02/17/21 .pt left the facility via ambulances in stable condition
[2021-02-14] MEDS ORDERED: CLOPIDOGREL 75 MG TABLET PO SCH (15:30)
== END 2021-02-14 15:28 | disposition home health service (06) | DRG 56 ==
PROVIDERS: ADMIT Physical Medicine & Rehabilitation Pain Medicine; ATTEND Physical Medicine & Rehabilitation Pain Medicine
DX: I69.154 Hemiplegia and hemiparesis following nontraumatic intracerebral hemorrhage affecting left non-dominant side (principal); N17.0 Acute kidney failure with tubular necrosis; I21.A1 Myocardial infarction type 2; N39.0 Urinary tract infection, site not specified; D68.59 Other primary thrombophilia; E87.1 Hypo-osmolality and hyponatremia; E03.9 Hypothyroidism, unspecified; E11.9 Type 2 diabetes mellitus without complications; E78.5 Hyperlipidemia, unspecified; I10 Essential (primary) hypertension; I25.10 Atherosclerotic heart disease of native coronary artery without angina pectoris; Z95.1 Presence of aortocoronary bypass graft; R53.1 Weakness; B96.20 Unspecified Escherichia coli [E. coli] as the cause of diseases classified elsewhere; E11.51 Type 2 diabetes mellitus with diabetic peripheral angiopathy without gangrene; E83.42 Hypomagnesemia; E87.5 Hyperkalemia; G62.9 Polyneuropathy, unspecified; I67.2 Cerebral atherosclerosis; K44.9 Diaphragmatic hernia without obstruction or gangrene; M43.6 Torticollis; M19.90 Unspecified osteoarthritis, unspecified site; R19.7 Diarrhea, unspecified; Z20.822 Contact with and (suspected) exposure to COVID-19
CPT/HCPCS: 36415; 70450; 83735; 83935; 84100; 84133; 84300; 84443; 84550; 85025; 87077; 87086; J0696; J1815; J7050; J7060